=== PATIENT | male | born 1965 | race African-American/Black ===

== ENCOUNTER 2022-06-19 08:20 | Inpatient (IN) | payer OTHER, SELFPAY ==
[2022-06-19 09:06] LABS: #Eosinphils 0.7 thou/uL (0.0-0.7); #Lymphocytes 1.8 thou/uL (1.20-3.40); #Monocytes 1.2 thou/uL (0.11-0.59); #Neutrophils 5.1 thou/uL (1.40-6.50); %Basophils 0.1 % (0.0-1.0); %Eosinophils 8.4 % (0.0-10.0); %Lymphocytes 19.9 % (21.0-51.0); %Monocytes 13.4 % (0.0-10.0); %Neutrophils 58.2 % (42.0-75.0); Hemoglobin 6.3 g/dL (14.0-18.0); Mean Corpuscular HGB CONC 31.8 g/dL (32.0-36.0); Mean Corpuscular Hemoglobin 28.8 pg (27.0-31.0); Mean Corpuscular Volume 90.5 fL (78.0-98.0); Mean Platelet Volume 7.4 fL (7.4-10.4); Platelet Count 370 thou/uL (130-400); RBC Distribution Width 11.1 % (11.5-14.5); Red Blood Cell (RBC) Count 2.19 mill/uL (4.70-6.10); White Blood Cell (WBC) Count 8.8 thou/uL (4.8-10.8)
[2022-06-19] MEDS ORDERED: Iopamidol-370 76% 500 ML 1 ML ONE (09:18)
[2022-06-19 09:31] LABS: ALT (SGPT) Less than 7 U/L (8-55); AST (SGOT) 8 U/L (5-34); Albumin 3.7 g/dL (3.5-5.0); Alkaline Phosphatase 84 U/L (40-110); Anion Gap 20 mmol/L (10-20); BUN (Urea Nitrogen) 123 mg/dL (8.4-25.7); Bilirubin, Total 0.6 mg/dL (0.2-1.2); Calc. Creatinine Clearance 0 mL/min (70-130); Calcium 9.3 mg/dL (7.8-10.44); Carbon Dioxide 14 mmol/L (22-29); Chloride 109 mmol/L (98-107); Estimated GFR 3; Globulin 3.5 g/dL (2.4-3.5); Glucose 81 mg/dL (70-105); Lipase 80 U/L (8-78); Potassium 5.3 mmol/L (3.5-5.1); Protein, Total 7.2 g/dL (6.0-8.3); Sodium 138 mmol/L (136-145)
[2022-06-19 09:52] LABS: CKMB 2.1 ng/mL (0-6.6)
[2022-06-19 10:37] LABS: Iron 40 ug/dL (65-175); Iron Binding Capacity, Total 235 mcg/dL (261-462)
[2022-06-19] MEDS ORDERED: Sodium Bicarbonate 150 MEQ in Dextrose 5 %-0.45 % NaCl 1,000 ML FS SCH (11:00)
[2022-06-19] MEDS ORDERED: Ondansetron PF 4 MG/2 ML Vial IVP PRN (11:28)
[2022-06-19] MEDS ORDERED: Ondansetron ODT 4 MG TAB PO PRN (11:28)
[2022-06-19] MEDS ORDERED: Acetaminophen 650 MG Suppository PR PRN (11:28)
[2022-06-19] MEDS ORDERED: hydrALAZINE 20 MG/ML VIAL SLOW IVP PRN (11:30)
[2022-06-19 12:28] LABS: Hemoglobin 6.8 g/dL (14.0-18.0)
[2022-06-19 12:54] LABS: Anion Gap 19 mmol/L (10-20); BUN (Urea Nitrogen) 122 mg/dL (8.4-25.7); Calc. Creatinine Clearance 0 mL/min (70-130); Calcium 9.2 mg/dL (7.8-10.44); Carbon Dioxide 14 mmol/L (22-29); Chloride 111 mmol/L (98-107); Estimated GFR 3; Glucose 122 mg/dL (70-105); Potassium 5.3 mmol/L (3.5-5.1); Sodium 139 mmol/L (136-145)
[2022-06-19] MEDS ORDERED: Amlodipine 10 MG TAB PO SCH (13:30)
[2022-06-19 13:50] LABS: Hemoglobin 6.5 g/dL (14.0-18.0)
[2022-06-19 16:29] LABS: Bacteria/HPF None Seen HPF (None Seen); Bilirubin Negative (Negative); Blood, Urine 1+ (Negative); Clarity Clear (Clear); Glucose, Urine (Dipstick) 100 mg/dL (Negative); Ketone, Urine Negative (Negative); Leukocyte Negative Leu/uL (Negative); Nitrite Negative (Negative); Protein, Urine (Dipstick) 300 mg/dL (Neg-Trace); RBC/HPF 0-3 HPF (0-3); Specific Gravity, Urine 1.014 (1.002-1.036); Squamous Epithelial None Seen HPF (0-3); Urobilinogen Normal mg/dL (Less than 2); WBC/HPF 0-3 HPF (0-3)
[2022-06-19 16:31] LABS: Urine Culture Reflex No No
[2022-06-19 17:18] LABS: Creatinine, Urine 76.8 mg/dL (63-166)
[2022-06-19 17:45] LABS: Hemoglobin 7.3 g/dL (14.0-18.0)
[2022-06-19 18:45] LABS: Anion Gap 18 mmol/L (10-20); BUN (Urea Nitrogen) 122 mg/dL (8.4-25.7); Calc. Creatinine Clearance 7 mL/min (70-130); Calcium 8.8 mg/dL (7.8-10.44); Carbon Dioxide 15 mmol/L (22-29); Chloride 110 mmol/L (98-107); Estimated GFR 3; Glucose 105 mg/dL (70-105); Potassium 5.1 mmol/L (3.5-5.1); Sodium 138 mmol/L (136-145)
[2022-06-19] MEDS: Carvedilol 6.25 MG TAB PO SCH (21:19)
[2022-06-19] MEDS: Pantoprazole 40 MG VIAL IVP SCH (21:20)
[2022-06-19] MEDS: Sodium Bicarbonate 150 MEQ in Dextrose 5% in Water 1,000 ML IV SCH (23:20)
[2022-06-20 05:38] LABS: Anion Gap 18 mmol/L (10-20); BUN (Urea Nitrogen) 121 mg/dL (8.4-25.7); Calc. Creatinine Clearance 7 mL/min (70-130); Calcium 8.4 mg/dL (7.8-10.44); Carbon Dioxide 19 mmol/L (22-29); Chloride 107 mmol/L (98-107); Estimated GFR 3; Glucose 90 mg/dL (70-105); Potassium 4.6 mmol/L (3.5-5.1); Sodium 139 mmol/L (136-145)
[2022-06-20 05:44] LABS: #Eosinphils 0.6 thou/uL (0.0-0.7); #Lymphocytes 1.6 thou/uL (1.20-3.40); #Neutrophils 5.6 thou/uL (1.40-6.50); %Basophils 0.2 % (0.0-1.0); %Eosinophils 7.1 % (0.0-10.0); %Lymphocytes 18.2 % (21.0-51.0); %Monocytes 11.3 % (0.0-10.0); %Neutrophils 63.2 % (42.0-75.0); Hemoglobin 7.8 g/dL (14.0-18.0); Mean Corpuscular HGB CONC 33.5 g/dL (32.0-36.0); Mean Corpuscular Hemoglobin 30.2 pg (27.0-31.0); Mean Corpuscular Volume 90.2 fL (78.0-98.0); Mean Platelet Volume 7.5 fL (7.4-10.4); Platelet Count 301 thou/uL (130-400); RBC Distribution Width 11.9 % (11.5-14.5); Red Blood Cell (RBC) Count 2.59 mill/uL (4.70-6.10); White Blood Cell (WBC) Count 8.9 thou/uL (4.8-10.8)
[2022-06-20 08:35] LABS: Magnesium 1.4 mg/dL (1.6-2.6)
[2022-06-20 08:38] LABS: Total PSA 0.5 ng/mL (0.0-4.0)
[2022-06-20 08:49] LABS: CKMB 1.5 ng/mL (0-6.6)
[2022-06-20] MEDS ORDERED: Magnesium 2 GM/50 ML(in water) 2 GM in Premix Bag 1 BAG IVPB SCH (09:30)
[2022-06-20] MEDS: Sodium Bicarbonate 150 MEQ in Dextrose 5% in Water 1,000 ML IV SCH ×2 (09:46→20:41)
[2022-06-20] MEDS: Amlodipine 10 MG TAB PO SCH (09:48)
[2022-06-20] MEDS: Tamsulosin HCl 0.4 MG CAP PO SCH (09:48)
[2022-06-20] MEDS: Carvedilol 6.25 MG TAB PO SCH ×2 (09:49→20:40)
[2022-06-20] MEDS: Acetaminophen 325 MG TAB PO PRN ×3 (09:49→23:29)
[2022-06-20] MEDS: Pantoprazole 40 MG VIAL IVP SCH ×2 (09:50→20:41)
[2022-06-20 11:07] LABS: Phosphorus 5.6 mg/dL (2.3-4.7)
[2022-06-20 11:32] LABS: CKMB 1.3 ng/mL (0-6.6)
[2022-06-20] MEDS ORDERED: Calcitriol 0.25 MCG CAP PO SCH (12:00)
[2022-06-20 12:10] LABS: Hemoglobin 7.7 g/dL (14.0-18.0)
[2022-06-20] MEDS: Epoetin (ESRD) 10,000 UNITS/ML VIAL SC SCH (12:41)
[2022-06-20] MEDS ORDERED: Labetalol HCl 100 MG/20 ML VIAL SLOW IVP PRN (15:29)
[2022-06-20 17:28] LABS: Hemoglobin 8.1 g/dL (14.0-18.0)
[2022-06-20] MEDS: Ferrous Sulfate 325 MG TAB PO SCH (18:21)
[2022-06-20] MEDS: hydrALAZINE 25 MG TAB PO SCH (20:41)
[2022-06-21 05:21] LABS: #Eosinphils 0.6 thou/uL (0.0-0.7); #Lymphocytes 1.7 thou/uL (1.20-3.40); #Monocytes 1.5 thou/uL (0.11-0.59); #Neutrophils 11.1 thou/uL (1.40-6.50); %Basophils 0.3 % (0.0-1.0); %Eosinophils 3.8 % (0.0-10.0); %Lymphocytes 11.4 % (21.0-51.0); %Monocytes 9.9 % (0.0-10.0); %Neutrophils 74.7 % (42.0-75.0); Hemoglobin 7.8 g/dL (14.0-18.0); Mean Corpuscular Hemoglobin 29.6 pg (27.0-31.0); Mean Corpuscular Volume 89.6 fL (78.0-98.0); Mean Platelet Volume 7.6 fL (7.4-10.4); Platelet Count 318 thou/uL (130-400); RBC Distribution Width 11.7 % (11.5-14.5); Red Blood Cell (RBC) Count 2.64 mill/uL (4.70-6.10); White Blood Cell (WBC) Count 14.8 thou/uL (4.8-10.8)
[2022-06-21] MEDS: Acetaminophen 325 MG TAB PO PRN (05:31)
[2022-06-21 05:42] LABS: Anion Gap 18 mmol/L (10-20); BUN (Urea Nitrogen) 105 mg/dL (8.4-25.7); Calc. Creatinine Clearance 8 mL/min (70-130); Calcium 7.8 mg/dL (7.8-10.44); Carbon Dioxide 25 mmol/L (22-29); Chloride 99 mmol/L (98-107); Estimated GFR 4; Glucose 118 mg/dL (70-105); Magnesium 1.5 mg/dL (1.6-2.6); Potassium 4.4 mmol/L (3.5-5.1); Sodium 138 mmol/L (136-145)
[2022-06-21] MEDS ORDERED: HYDROcodone/Acetaminophen 7.5/325 mg Tablet PO SCH (06:00)
[2022-06-21] MEDS ORDERED: Magnesium 2 GM/50 ML(in water) 2 GM in Premix Bag 1 BAG IVPB SCH (06:00)
[2022-06-21] MEDS: Sodium Bicarbonate 150 MEQ in Dextrose 5% in Water 1,000 ML IV SCH (06:12)
[2022-06-21] MEDS: hydrALAZINE 25 MG TAB PO SCH ×3 (08:53→19:41)
[2022-06-21] MEDS: Calcitriol 0.25 MCG CAP PO SCH (08:53)
[2022-06-21] MEDS: Amlodipine 10 MG TAB PO SCH (08:53)
[2022-06-21] MEDS: Tamsulosin HCl 0.4 MG CAP PO SCH (08:53)
[2022-06-21] MEDS: Carvedilol 6.25 MG TAB PO SCH ×2 (08:54→19:41)
[2022-06-21] MEDS: Febuxostat 40 MG TAB PO SCH (08:54)
[2022-06-21] MEDS: Ferrous Sulfate 325 MG TAB PO SCH ×2 (08:54→17:20)
[2022-06-21] MEDS: Pantoprazole 40 MG VIAL IVP SCH ×2 (08:55→19:41)
[2022-06-21] MEDS ORDERED: Sodium Chloride 0.9% 1,000 ML IV SCH (10:15)
[2022-06-21] MEDS ORDERED: methylPREDNISolone 4 mg Tablet PO SCH (10:45)
[2022-06-21] MEDS: Calcium Carbonate 500 MG ChewTAB PO SCH ×2 (11:29→17:20)
[2022-06-21 13:17] LABS: 24 Hr Creatinine 1764.88 mg/24 hr (950-2490); Creatinine, Urine 67.88 mg/dL (63-166)
[2022-06-21] MEDS: HYDROcodone/Acetaminophen 5/325 mg Tablet PO PRN (13:20)
[2022-06-21 18:31] LABS: ANA Symphony (Qualitative) Negative (Negative); ANA Symphony (Quantitative) 0.5 Ratio (< 0.7 Negative); dsDNA IgG Antibody 1.1 IU/mL (<10 Negative)
[2022-06-21 22:49] LABS: Hemoglobin 8.6 g/dL (14.0-18.0); Platelet Count 283 thou/uL (130-400)
[2022-06-22 04:59] LABS: #Lymphocytes 1.4 thou/uL (1.20-3.40); #Monocytes 1.3 thou/uL (0.11-0.59); #Neutrophils 8.4 thou/uL (1.40-6.50); %Basophils 0.2 % (0.0-1.0); %Eosinophils 0.2 % (0.0-10.0); %Lymphocytes 12.8 % (21.0-51.0); %Monocytes 11.6 % (0.0-10.0); %Neutrophils 75.1 % (42.0-75.0); Hemoglobin 8.9 g/dL (14.0-18.0); Mean Corpuscular HGB CONC 33.6 g/dL (32.0-36.0); Mean Corpuscular Hemoglobin 30.3 pg (27.0-31.0); Mean Corpuscular Volume 90.2 fL (78.0-98.0); Mean Platelet Volume 7.6 fL (7.4-10.4); Platelet Count 305 thou/uL (130-400); RBC Distribution Width 11.7 % (11.5-14.5); Red Blood Cell (RBC) Count 2.93 mill/uL (4.70-6.10); White Blood Cell (WBC) Count 11.2 thou/uL (4.8-10.8)
[2022-06-22 05:01] LABS: Hemoglobin A1c 5.7 % (4.0-6.0)
[2022-06-22 05:08] LABS: Anion Gap 21 mmol/L (10-20); BUN (Urea Nitrogen) 108 mg/dL (8.4-25.7); Calc. Creatinine Clearance 8 mL/min (70-130); Calcium 8.4 mg/dL (7.8-10.44); Carbon Dioxide 21 mmol/L (22-29); Cardiac Risk 4.9 (Less than 4.5); Chloride 99 mmol/L (98-107); Cholesterol 191 mg/dl (< 200 Desired); Estimated GFR 4; Glucose 111 mg/dL (70-105); HDL Cholesterol 39 mg/dL (>60 Neg Risk); LDL Cholesterol, Calculated 135 mg/dL; Magnesium 1.7 mg/dL (1.6-2.6); Potassium 4.8 mmol/L (3.5-5.1); Sodium 136 mmol/L (136-145); Triglycerides 86 mg/dL (Less than 150)
[2022-06-22] MEDS ORDERED: methylPREDNISolone 4 mg Tablet PO SCH (08:00)
[2022-06-22] MEDS: Sodium Bicarbonate 75 MEQ in Sodium Chloride 0.45% 1,000 ML IV SCH ×2 (08:10→18:31)
[2022-06-22] MEDS: Calcium Carbonate 500 MG ChewTAB PO SCH ×3 (08:17→17:22)
[2022-06-22] MEDS: Carvedilol 6.25 MG TAB PO SCH ×2 (08:18→20:23)
[2022-06-22] MEDS: Ferrous Sulfate 325 MG TAB PO SCH ×2 (08:18→17:22)
[2022-06-22] MEDS: Tamsulosin HCl 0.4 MG CAP PO SCH (08:18)
[2022-06-22] MEDS: Calcitriol 0.25 MCG CAP PO SCH (08:18)
[2022-06-22] MEDS: Amlodipine 10 MG TAB PO SCH (08:18)
[2022-06-22] MEDS: hydrALAZINE 25 MG TAB PO SCH ×3 (08:18→20:23)
[2022-06-22] MEDS: Febuxostat 40 MG TAB PO SCH (08:19)
[2022-06-22] MEDS: Pantoprazole 40 MG VIAL IVP SCH ×2 (08:20→20:24)
[2022-06-22] MEDS ORDERED: Colchicine 0.6 MG TAB PO SCH (09:30)
[2022-06-22] MEDS ORDERED: Colchicine 0.3 MG TAB PO SCH (09:30)
[2022-06-22] MEDS: Iron, Sodium Ferric Gluconate 250 MG in Sodium Chloride 0.9% 250 ML 250 ML IVPB SCH (10:21)
[2022-06-22] MEDS: HYDROcodone/Acetaminophen 5/325 mg Tablet PO PRN (20:24)
[2022-06-23] MEDS: HYDROcodone/Acetaminophen 5/325 mg Tablet PO PRN ×2 (04:01→20:09)
[2022-06-23 04:48] LABS: #Eosinphils 0.1 thou/uL (0.0-0.7); #Lymphocytes 1.4 thou/uL (1.20-3.40); #Monocytes 1.3 thou/uL (0.11-0.59); %Basophils 0.2 % (0.0-1.0); %Eosinophils 1.1 % (0.0-10.0); %Lymphocytes 9.8 % (21.0-51.0); %Monocytes 9.7 % (0.0-10.0); %Neutrophils 79.2 % (42.0-75.0); Hemoglobin 9.1 g/dL (14.0-18.0); Mean Corpuscular HGB CONC 32.6 g/dL (32.0-36.0); Mean Corpuscular Hemoglobin 29.7 pg (27.0-31.0); Mean Corpuscular Volume 91.2 fL (78.0-98.0); Mean Platelet Volume 7.6 fL (7.4-10.4); Platelet Count 334 thou/uL (130-400); RBC Distribution Width 11.7 % (11.5-14.5); Red Blood Cell (RBC) Count 3.07 mill/uL (4.70-6.10); White Blood Cell (WBC) Count 13.9 thou/uL (4.8-10.8)
[2022-06-23 04:55] LABS: INR-International Normal Ratio 1.1; Prothrombin Time 13.9 sec (12.0-14.7)
[2022-06-23 04:56] LABS: PTT 41.4 sec (22.9-36.1)
[2022-06-23 05:06] LABS: Anion Gap 21 mmol/L (10-20); BUN (Urea Nitrogen) 101 mg/dL (8.4-25.7); BUN/Creatinine Ratio 7.35; Calc. Creatinine Clearance 9 mL/min (70-130); Calcium 8.8 mg/dL (7.8-10.44); Carbon Dioxide 21 mmol/L (22-29); Chloride 100 mmol/L (98-107); Estimated GFR 4; Glucose 113 mg/dL (70-105); Phosphorus 5.9 mg/dL (2.3-4.7); Potassium 4.8 mmol/L (3.5-5.1); Sodium 137 mmol/L (136-145)
[2022-06-23] MEDS ORDERED: methylPREDNISolone 4 mg Tablet PO SCH (08:00)
[2022-06-23] MEDS ORDERED: Colchicine 0.3 MG TAB PO SCH (08:45)
[2022-06-23] MEDS ORDERED: Colchicine 0.6 MG TAB PO SCH (08:45)
[2022-06-23] MEDS: Calcium Carbonate 500 MG ChewTAB PO SCH ×3 (09:43→16:34)
[2022-06-23] MEDS: Calcitriol 0.25 MCG CAP PO SCH (09:45)
[2022-06-23] MEDS: Carvedilol 6.25 MG TAB PO SCH ×2 (09:45→20:08)
[2022-06-23] MEDS: hydrALAZINE 25 MG TAB PO SCH ×3 (09:46→20:08)
[2022-06-23] MEDS: Febuxostat 40 MG TAB PO SCH (09:46)
[2022-06-23] MEDS: NIFEdipine XL 60 MG TAB PO SCH (09:47)
[2022-06-23] MEDS: Tamsulosin HCl 0.4 MG CAP PO SCH (09:47)
[2022-06-23] MEDS: Pantoprazole 40 MG VIAL IVP SCH ×2 (09:47→20:09)
[2022-06-23] MEDS: Iron, Sodium Ferric Gluconate 250 MG in Sodium Chloride 0.9% 250 ML 250 ML IVPB SCH (10:13)
[2022-06-23] MEDS ORDERED: Lidocaine 5% Patch TD SCH (10:15)
[2022-06-23] MEDS ORDERED: clonazePAM 1 MG TAB PO SCH (11:30)
[2022-06-23] MEDS: Ferrous Sulfate 325 MG TAB PO SCH ×2 (11:54→18:42)
[2022-06-23 15:13] LABS: Cytoplasmic (C-ANCA) <1:20 titer (Neg:<1:20); Myeloperoxidase AutoAbs <0.2 units (0.0-0.9); Perinuclear (P-ANCA) <1:20 titer (Neg:<1:20); Proteinase-3 AutoAbs Less than 0.2 units (0.0-0.9)
[2022-06-23] MEDS: clonazePAM 1 MG TAB PO SCH (20:09)
[2022-06-23] MEDS: Transdermal Patch Removal TOP SCH (20:26)
[2022-06-24 04:45] LABS: #Eosinphils 0.3 thou/uL (0.0-0.7); #Lymphocytes 1.4 thou/uL (1.20-3.40); #Monocytes 1.4 thou/uL (0.11-0.59); #Neutrophils 9.7 thou/uL (1.40-6.50); %Basophils 0.3 % (0.0-1.0); %Eosinophils 2.3 % (0.0-10.0); %Lymphocytes 11.2 % (21.0-51.0); %Neutrophils 75.2 % (42.0-75.0); Hemoglobin 8.9 g/dL (14.0-18.0); Mean Corpuscular HGB CONC 33.2 g/dL (32.0-36.0); Mean Corpuscular Hemoglobin 30.5 pg (27.0-31.0); Mean Corpuscular Volume 91.7 fL (78.0-98.0); Mean Platelet Volume 7.8 fL (7.4-10.4); Platelet Count 348 thou/uL (130-400); RBC Distribution Width 11.7 % (11.5-14.5); Red Blood Cell (RBC) Count 2.93 mill/uL (4.70-6.10); White Blood Cell (WBC) Count 12.8 thou/uL (4.8-10.8)
[2022-06-24 04:58] LABS: Albumin 2.9 g/dL (3.5-5.0); Anion Gap 20 mmol/L (10-20); BUN (Urea Nitrogen) 116 mg/dL (8.4-25.7); BUN/Creatinine Ratio 8.12; Calc. Creatinine Clearance 8 mL/min (70-130); Calcium 8.6 mg/dL (7.8-10.44); Carbon Dioxide 22 mmol/L (22-29); Chloride 98 mmol/L (98-107); Estimated GFR 4; Glucose 112 mg/dL (70-105); Phosphorus 5.9 mg/dL (2.3-4.7); Potassium 4.4 mmol/L (3.5-5.1); Sodium 136 mmol/L (136-145)
[2022-06-24] MEDS ORDERED: methylPREDNISolone 4 mg Tablet PO SCH (08:00)
[2022-06-24] MEDS: Calcium Carbonate 500 MG ChewTAB PO SCH ×3 (08:29→16:32)
[2022-06-24] MEDS: Carvedilol 6.25 MG TAB PO SCH (08:30)
[2022-06-24] MEDS: Calcitriol 0.25 MCG CAP PO SCH (08:30)
[2022-06-24] MEDS: clonazePAM 1 MG TAB PO SCH ×2 (08:30→21:57)
[2022-06-24] MEDS: Lidocaine 5% Patch TD SCH (08:31)
[2022-06-24] MEDS: hydrALAZINE 25 MG TAB PO SCH ×3 (08:31→21:57)
[2022-06-24] MEDS: NIFEdipine XL 60 MG TAB PO SCH (08:31)
[2022-06-24] MEDS: Tamsulosin HCl 0.4 MG CAP PO SCH (08:32)
[2022-06-24] MEDS: Pantoprazole 40 MG VIAL IVP SCH (08:32)
[2022-06-24] MEDS: Febuxostat 40 MG TAB PO SCH (08:32)
[2022-06-24] MEDS ORDERED: Lidocaine 5% Patch TD SCH (09:00)
[2022-06-24 09:32] LABS: CK (CPK) 216 U/L (30-200)
[2022-06-24] MEDS: Iron, Sodium Ferric Gluconate 250 MG in Sodium Chloride 0.9% 250 ML 250 ML IVPB SCH (11:05)
[2022-06-24] MEDS: Ferrous Sulfate 325 MG TAB PO SCH ×2 (11:05→18:15)
[2022-06-24 14:37] LABS: Albumin, PEP 24hr Ur 50.3 % (NOT ESTAB.); Alpha-1-Globulin, PEP 24h Ur 6.6 % (NOT ESTAB.); Alpha-2-Globulin, PEP 24h Ur 12.7 % (NOT ESTAB.); Beta Globulin, PEP 24h Ur 14.4 % (NOT ESTAB.); M-Spike,% PEP 24hr Ur Not Observed % (Not Observed); Protein, PEP 24hr calculated 9885 mg/24 hr (30-150); Protein, Urine 380.2 mg/dL (Not Estab.)
[2022-06-24] MEDS ORDERED: Lidocaine 1% (PF) 30 ML VIAL SC SCH (14:45)
[2022-06-24 15:13] LABS: A/G Ratio 0.8 (0.7-1.7); Albumin 2.6 g/dL (2.9-4.4); Alpha 1 0.4 g/dL (0.0-0.4); Alpha 2 0.8 g/dL (0.4-1.0); Globulin, Total 3.2 g/dL (2.2-3.9); M-Spike Not Observed g/dL (Not Observed); Protein Electrophoresis Intrp Note: (.)
[2022-06-24] MEDS ORDERED: methylPREDNISolone Acetate 40 mg/ml Vial IM SCH (15:30)
[2022-06-24] MEDS: Benzonatate 100 MG CAP PO PRN (18:15)
[2022-06-24 18:41] LABS: Synovial Fluid, Protein 3.8 g/dL (Not Available)
[2022-06-24 19:05] LABS: RBC Count-Automated (BF) 3079 /cu.mm; WBC/Nucleated-Auto (BF) 10646 /cu.mm
[2022-06-24 19:09] LABS: BF Color Yellow; Body Fluid Source Synovial Fluid; Clarity Cloudy/Turbid (Clear); Tube # EDTA
[2022-06-24 19:17] LABS: BF Segmented Neutrophils 81 %; Cell Count Non Hematic 17 %; Lymphocytes 2 %
[2022-06-24] MEDS: Carvedilol 25 MG TAB PO SCH (21:57)
[2022-06-24] MEDS: Transdermal Patch Removal TOP SCH (21:58)
[2022-06-25 05:16] LABS: ALT (SGPT) Less than 7 U/L (8-55); AST (SGOT) 11 U/L (5-34); Albumin 2.8 g/dL (3.5-5.0); Alkaline Phosphatase 72 U/L (40-110); Anion Gap 20 mmol/L (10-20); BUN (Urea Nitrogen) 114 mg/dL (8.4-25.7); BUN/Creatinine Ratio 7.66; Bilirubin, Total 0.7 mg/dL (0.2-1.2); Calc. Creatinine Clearance 8 mL/min (70-130); Calcium 8.6 mg/dL (7.8-10.44); Carbon Dioxide 22 mmol/L (22-29); Chloride 98 mmol/L (98-107); Estimated GFR 3; Globulin 3.5 g/dL (2.4-3.5); Glucose 150 mg/dL (70-105); Phosphorus 5.9 mg/dL (2.3-4.7); Protein, Total 6.3 g/dL (6.0-8.3); Sodium 135 mmol/L (136-145)
[2022-06-25] MEDS: hydrALAZINE 25 MG TAB PO SCH ×3 (08:59→21:44)
[2022-06-25] MEDS: Lidocaine 5% Patch TD SCH (08:59)
[2022-06-25] MEDS: NIFEdipine XL 60 MG TAB PO SCH ×2 (08:59→21:44)
[2022-06-25] MEDS: Carvedilol 25 MG TAB PO SCH ×2 (08:59→21:44)
[2022-06-25] MEDS ORDERED: Sodium Bicarbonate 2.5 MEQ/5 ML VIAL ONE (10:21)
[2022-06-25] MEDS ORDERED: Midazolam HCl 2 mg/2 ml Vial ONE (10:21)
[2022-06-25] MEDS ORDERED: Fentanyl 100 MCG/2 ML VIAL ONE (10:21)
[2022-06-25] MEDS: Calcium Carbonate 500 MG ChewTAB PO SCH ×3 (12:03→17:13)
[2022-06-25] MEDS: Febuxostat 40 MG TAB PO SCH (12:18)
[2022-06-25] MEDS: Calcitriol 0.25 MCG CAP PO SCH (12:18)
[2022-06-25] MEDS: Ferrous Sulfate 325 MG TAB PO SCH ×2 (12:18→17:13)
[2022-06-25] MEDS: Tamsulosin HCl 0.4 MG CAP PO SCH (12:19)
[2022-06-25] MEDS: Ampicillin/Sulbactam 3 GM in Sodium Chloride 0.9% 100 ML IVPB SCH ×3 (12:19→21:45)
[2022-06-25] MEDS ORDERED: Acetaminophen 500 MG TAB PO PRN (12:28)
[2022-06-25 14:09] VITALS: BMI 35.6
[2022-06-25] MEDS: Iron, Sodium Ferric Gluconate 250 MG in Sodium Chloride 0.9% 250 ML 250 ML IVPB SCH (16:00)
[2022-06-25] MEDS: Benzonatate 100 MG CAP PO PRN (21:44)
[2022-06-25] MEDS: Transdermal Patch Removal TOP SCH (21:45)
[2022-06-26] MEDS: Ampicillin/Sulbactam 3 GM in Sodium Chloride 0.9% 100 ML IVPB SCH ×2 (04:29→21:16)
[2022-06-26 05:12] LABS: Albumin 2.7 g/dL (3.5-5.0); Anion Gap 21 mmol/L (10-20); Calc. Creatinine Clearance 8 mL/min (70-130); Calcium 8.7 mg/dL (7.8-10.44); Carbon Dioxide 21 mmol/L (22-29); Chloride 101 mmol/L (98-107); Estimated GFR 3; Glucose 126 mg/dL (70-105); Phosphorus 7.1 mg/dL (2.3-4.7); Potassium 4.8 mmol/L (3.5-5.1); Sodium 138 mmol/L (136-145)
[2022-06-26 05:18] LABS: BUN (Urea Nitrogen) 118 mg/dL (8.4-25.7); BUN/Creatinine Ratio 7.52
[2022-06-26] MEDS: Febuxostat 40 MG TAB PO SCH (09:21)
[2022-06-26] MEDS: Ferrous Sulfate 325 MG TAB PO SCH ×2 (09:23→17:14)
[2022-06-26] MEDS: Calcitriol 0.25 MCG CAP PO SCH (09:23)
[2022-06-26] MEDS: Lidocaine 5% Patch TD SCH (09:23)
[2022-06-26] MEDS: Sodium Bicarbonate 75 MEQ in Sodium Chloride 0.45% 1,000 ML IV SCH ×2 (09:24→18:21)
[2022-06-26] MEDS: Carvedilol 25 MG TAB PO SCH ×2 (09:24→21:16)
[2022-06-26] MEDS: Calcium Carbonate 500 MG ChewTAB PO SCH ×3 (09:24→17:14)
[2022-06-26] MEDS: Tamsulosin HCl 0.4 MG CAP PO SCH (09:24)
[2022-06-26] MEDS: NIFEdipine XL 60 MG TAB PO SCH ×2 (09:24→21:16)
[2022-06-26 13:15] LABS: #Basophils 0.1 thou/uL (0.0-0.2); #Eosinphils 0.3 thou/uL (0.0-0.7); #Monocytes 1.4 thou/uL (0.11-0.59); #Neutrophils 8.9 thou/uL (1.40-6.50); %Basophils 0.6 % (0.0-1.0); %Eosinophils 2.5 % (0.0-10.0); %Lymphocytes 15.7 % (21.0-51.0); %Monocytes 10.7 % (0.0-10.0); %Neutrophils 70.5 % (42.0-75.0); Hemoglobin 8.9 g/dL (14.0-18.0); Mean Corpuscular HGB CONC 31.9 g/dL (32.0-36.0); Mean Corpuscular Volume 91.1 fL (78.0-98.0); Mean Platelet Volume 7.5 fL (7.4-10.4); Platelet Count 380 thou/uL (130-400); RBC Distribution Width 11.9 % (11.5-14.5); Red Blood Cell (RBC) Count 3.05 mill/uL (4.70-6.10); White Blood Cell (WBC) Count 12.7 thou/uL (4.8-10.8)
[2022-06-26] MEDS: Transdermal Patch Removal TOP SCH (23:26)
[2022-06-27 05:05] LABS: Albumin 2.7 g/dL (3.5-5.0); Anion Gap 21 mmol/L (10-20); Calc. Creatinine Clearance 8 mL/min (70-130); Calcium 8.2 mg/dL (7.8-10.44); Carbon Dioxide 21 mmol/L (22-29); Chloride 101 mmol/L (98-107); Estimated GFR 3; Glucose 95 mg/dL (70-105); Phosphorus 6.6 mg/dL (2.3-4.7); Potassium 4.5 mmol/L (3.5-5.1); Sodium 138 mmol/L (136-145)
[2022-06-27 05:17] LABS: BUN (Urea Nitrogen) 123 mg/dL (8.4-25.7); BUN/Creatinine Ratio 7.94
[2022-06-27 05:20] LABS: Band 1 % (5-11); Eosinophils 4 % (0-10); Hemoglobin 8.2 g/dL (14.0-18.0); Lymphocytes 14 % (21-51); MDiff Complete? YES; Mean Corpuscular HGB CONC 31.9 g/dL (32.0-36.0); Mean Corpuscular Hemoglobin 29.4 pg (27.0-31.0); Mean Corpuscular Volume 92.3 fL (78.0-98.0); Mean Platelet Volume 7.5 fL (7.4-10.4); Monocytes 12 % (0-10); Neutrophil 69 % (42-75); Platelet Count 370 thou/uL (130-400); Red Blood Cell (RBC) Count 2.79 mill/uL (4.70-6.10); White Blood Cell (WBC) Count 11.8 thou/uL (4.8-10.8)
[2022-06-27] MEDS: NIFEdipine XL 60 MG TAB PO SCH ×2 (09:29→19:46)
[2022-06-27] MEDS: Calcitriol 0.25 MCG CAP PO SCH (09:29)
[2022-06-27] MEDS: Ferrous Sulfate 325 MG TAB PO SCH ×2 (09:29→17:49)
[2022-06-27] MEDS: Tamsulosin HCl 0.4 MG CAP PO SCH (09:29)
[2022-06-27] MEDS: Calcium Carbonate 500 MG ChewTAB PO SCH ×4 (09:29→19:47)
[2022-06-27] MEDS: Carvedilol 25 MG TAB PO SCH ×2 (09:30→19:46)
[2022-06-27] MEDS: Febuxostat 40 MG TAB PO SCH (09:30)
[2022-06-27] MEDS: Ampicillin/Sulbactam 3 GM in Sodium Chloride 0.9% 100 ML IVPB SCH ×2 (09:31→19:47)
[2022-06-27] MEDS: Sodium Bicarbonate 150 MEQ in Dextrose 5% in Water 1,000 ML IV SCH ×2 (10:17→19:06)
[2022-06-27] MEDS: Lidocaine 5% Patch TD SCH (10:21)
[2022-06-27] MEDS: Epoetin (ESRD) 10,000 UNITS/ML VIAL SC SCH (13:53)
[2022-06-27] MEDS: Benzonatate 100 MG CAP PO PRN (19:46)
[2022-06-27] MEDS: Transdermal Patch Removal TOP SCH (19:48)
[2022-06-28] MEDS ORDERED: Zolpidem Tartrate 5 MG TAB PO SCH (01:15)
[2022-06-28] MEDS: Sodium Bicarbonate 150 MEQ in Dextrose 5% in Water 1,000 ML IV SCH ×2 (03:00→16:26)
[2022-06-28] MEDS: Benzonatate 100 MG CAP PO PRN ×2 (04:39→18:37)
[2022-06-28] MEDS: Calcium Carbonate 500 MG ChewTAB PO SCH ×3 (05:47→21:12)
[2022-06-28 06:36] LABS: #Basophils 0.1 thou/uL (0.0-0.2); #Eosinphils 0.6 thou/uL (0.0-0.7); #Lymphocytes 2.2 thou/uL (1.20-3.40); #Monocytes 1.5 thou/uL (0.11-0.59); #Neutrophils 7.6 thou/uL (1.40-6.50); %Basophils 0.5 % (0.0-1.0); %Eosinophils 4.9 % (0.0-10.0); %Lymphocytes 18.6 % (21.0-51.0); %Monocytes 12.8 % (0.0-10.0); %Neutrophils 63.3 % (42.0-75.0); Mean Corpuscular HGB CONC 32.7 g/dL (32.0-36.0); Mean Corpuscular Hemoglobin 29.9 pg (27.0-31.0); Mean Corpuscular Volume 91.4 fL (78.0-98.0); Mean Platelet Volume 6.8 fL (7.4-10.4); Platelet Count 325 thou/uL (130-400); RBC Distribution Width 11.9 % (11.5-14.5); Red Blood Cell (RBC) Count 2.67 mill/uL (4.70-6.10); White Blood Cell (WBC) Count 11.9 thou/uL (4.8-10.8)
[2022-06-28 06:48] LABS: Albumin 2.7 g/dL (3.5-5.0); Anion Gap 20 mmol/L (10-20); BUN (Urea Nitrogen) 122 mg/dL (8.4-25.7); BUN/Creatinine Ratio 8.02; Calc. Creatinine Clearance 8 mL/min (70-130); Calcium 7.7 mg/dL (7.8-10.44); Carbon Dioxide 27 mmol/L (22-29); Chloride 96 mmol/L (98-107); Estimated GFR 3; Glucose 124 mg/dL (70-105); Phosphorus 6.7 mg/dL (2.3-4.7); Potassium 4.1 mmol/L (3.5-5.1); Sodium 139 mmol/L (136-145)
[2022-06-28] MEDS: Albumin 25% 25 GM/100 ML BOT IVPB SCH ×2 (08:07→14:40)
[2022-06-28] MEDS: Ampicillin/Sulbactam 3 GM in Sodium Chloride 0.9% 100 ML IVPB SCH ×2 (08:08→21:08)
[2022-06-28] MEDS: NIFEdipine XL 60 MG TAB PO SCH ×2 (08:08→21:12)
[2022-06-28] MEDS: Calcitriol 0.25 MCG CAP PO SCH (08:08)
[2022-06-28] MEDS: Ferrous Sulfate 325 MG TAB PO SCH ×2 (08:09→16:23)
[2022-06-28] MEDS: Febuxostat 40 MG TAB PO SCH (08:09)
[2022-06-28] MEDS: Carvedilol 25 MG TAB PO SCH ×2 (08:09→21:12)
[2022-06-28] MEDS: Tamsulosin HCl 0.4 MG CAP PO SCH (08:09)
[2022-06-28] MEDS: Lidocaine 5% Patch TD SCH (08:30)
[2022-06-28] MEDS: Transdermal Patch Removal TOP SCH (21:14)
[2022-06-29] MEDS: Calcium Carbonate 500 MG ChewTAB PO SCH ×3 (05:12→20:33)
[2022-06-29 07:26] LABS: #Basophils 0.1 thou/uL (0.0-0.2); #Eosinphils 0.5 thou/uL (0.0-0.7); #Monocytes 1.5 thou/uL (0.11-0.59); #Neutrophils 8.2 thou/uL (1.40-6.50); %Basophils 0.7 % (0.0-1.0); %Eosinophils 3.9 % (0.0-10.0); %Lymphocytes 16.6 % (21.0-51.0); %Monocytes 11.9 % (0.0-10.0); %Neutrophils 66.9 % (42.0-75.0); Hemoglobin 8.7 g/dL (14.0-18.0); Mean Corpuscular HGB CONC 32.4 g/dL (32.0-36.0); Mean Corpuscular Hemoglobin 29.9 pg (27.0-31.0); Mean Corpuscular Volume 92.3 fL (78.0-98.0); Mean Platelet Volume 7.2 fL (7.4-10.4); Platelet Count 365 thou/uL (130-400); Red Blood Cell (RBC) Count 2.91 mill/uL (4.70-6.10); White Blood Cell (WBC) Count 12.3 thou/uL (4.8-10.8)
[2022-06-29 07:48] LABS: MDiff Complete? YES; Platelet Morphology Comment Appears Adequate; Polychromasia SLIGHT = 2-3 cells (100X) (0-2/hpf)
[2022-06-29] MEDS: Benzonatate 100 MG CAP PO PRN ×3 (08:07→20:34)
[2022-06-29] MEDS: Febuxostat 40 MG TAB PO SCH (08:07)
[2022-06-29] MEDS: Ampicillin/Sulbactam 3 GM in Sodium Chloride 0.9% 100 ML IVPB SCH ×2 (08:07→20:34)
[2022-06-29] MEDS: Calcitriol 0.25 MCG CAP PO SCH (08:07)
[2022-06-29] MEDS: NIFEdipine XL 60 MG TAB PO SCH ×2 (08:07→20:33)
[2022-06-29] MEDS: Ferrous Sulfate 325 MG TAB PO SCH ×2 (08:07→16:56)
[2022-06-29] MEDS: Carvedilol 25 MG TAB PO SCH ×2 (08:07→20:34)
[2022-06-29] MEDS: Tamsulosin HCl 0.4 MG CAP PO SCH (08:07)
[2022-06-29] MEDS: Lidocaine 5% Patch TD SCH (08:15)
[2022-06-29 12:39] LABS: Albumin 3.4 g/dL (3.5-5.0); Anion Gap 23 mmol/L (10-20); BUN (Urea Nitrogen) 116 mg/dL (8.4-25.7); BUN/Creatinine Ratio 7.36; Calc. Creatinine Clearance 8 mL/min (70-130); Calcium 8.9 mg/dL (7.8-10.44); Carbon Dioxide 25 mmol/L (22-29); Chloride 99 mmol/L (98-107); Estimated GFR 3; Glucose 100 mg/dL (70-105); Phosphorus 7.1 mg/dL (2.3-4.7); Potassium 4.4 mmol/L (3.5-5.1); Sodium 143 mmol/L (136-145)
[2022-06-29] MEDS: Sevelamer Carbonate 800 MG TAB PO SCH (16:56)
[2022-06-29] MEDS ORDERED: GoLYTELY 4,000 ml Bottle PO SCH (17:00)
[2022-06-29] MEDS: Transdermal Patch Removal TOP SCH (20:42)
[2022-06-30] MEDS: Calcium Carbonate 500 MG ChewTAB PO SCH ×3 (05:07→20:21)
[2022-06-30] MEDS: Carvedilol 25 MG TAB PO SCH (05:07)
[2022-06-30 07:18] LABS: Reticulocyte Count 2.6 % (0.5-1.5)
[2022-06-30 07:20] LABS: #Basophils 0.1 thou/uL (0.0-0.2); #Eosinphils 0.4 thou/uL (0.0-0.7); #Monocytes 1.1 thou/uL (0.11-0.59); #Neutrophils 8.1 thou/uL (1.40-6.50); %Basophils 0.7 % (0.0-1.0); %Eosinophils 3.8 % (0.0-10.0); %Lymphocytes 16.8 % (21.0-51.0); %Monocytes 9.8 % (0.0-10.0); %Neutrophils 68.9 % (42.0-75.0); Hemoglobin 9.3 g/dL (14.0-18.0); Mean Corpuscular HGB CONC 32.1 g/dL (32.0-36.0); Mean Corpuscular Hemoglobin 29.9 pg (27.0-31.0); Mean Corpuscular Volume 93.1 fL (78.0-98.0); Mean Platelet Volume 7.4 fL (7.4-10.4); Platelet Count 387 thou/uL (130-400); RBC Distribution Width 12.2 % (11.5-14.5); White Blood Cell (WBC) Count 11.7 thou/uL (4.8-10.8)
[2022-06-30 07:28] LABS: INR-International Normal Ratio 1.1; PTT 35.1 sec (22.9-36.1); Prothrombin Time 14.1 sec (12.0-14.7)
[2022-06-30 07:40] LABS: Albumin 3.5 g/dL (3.5-5.0); Anion Gap 27 mmol/L (10-20); BUN (Urea Nitrogen) 111 mg/dL (8.4-25.7); BUN/Creatinine Ratio 6.91; Bilirubin, Total 0.6 mg/dL (0.2-1.2); Calc. Creatinine Clearance 8 mL/min (70-130); Calcium 9.3 mg/dL (7.8-10.44); Carbon Dioxide 20 mmol/L (22-29); Chloride 101 mmol/L (98-107); Estimated GFR 3; Glucose 78 mg/dL (70-105); Phosphorus 7.5 mg/dL (2.3-4.7); Potassium 4.7 mmol/L (3.5-5.1); Sodium 143 mmol/L (136-145)
[2022-06-30 07:59] LABS: HBSAg Index 0.24 S/CO (0-0.99); Hep B Surf Ag Non-Reactive S/CO (NonReactive); Hep C IgG Ab Non-Reactive (NonReactive); Hep C Index 0.11 S/CO (0-0.79); Vitamin D, 25 Hydroxy 16.6 ng/ml (> 30.0)
[2022-06-30] MEDS: Sevelamer Carbonate 800 MG TAB PO SCH ×3 (08:00→17:52)
[2022-06-30] MEDS ORDERED: Tuberculin PPD 0.1 ML VIAL I-DERMAL SCH (08:30)
[2022-06-30] MEDS: Ampicillin/Sulbactam 3 GM in Sodium Chloride 0.9% 100 ML IVPB SCH ×2 (08:30→20:20)
[2022-06-30] MEDS: Labetalol HCl 100 MG TAB PO SCH ×2 (08:53→20:21)
[2022-06-30 09:04] LABS: HBSAB Concentration 137.37 mIU/mL; Hep B Surf AB Reactive (NonReactive)
[2022-06-30 10:03] LABS: Hep B Core Total Ab Reactive (NonReactive); Hep B Core Total Index 7.54 S/CO (0-0.79)
[2022-06-30] MEDS ORDERED: Lidocaine 1% MPF 2 ML VIAL ONE (10:38)
[2022-06-30] MEDS ORDERED: PROPOFOL 200 MG/20 ML VIAL ONE (10:38)
[2022-06-30] MEDS: NIFEdipine XL 60 MG TAB PO SCH ×2 (12:44→20:20)
[2022-06-30] MEDS: Ferrous Sulfate 325 MG TAB PO SCH ×2 (12:44→17:52)
[2022-06-30] MEDS: Febuxostat 40 MG TAB PO SCH (12:44)
[2022-06-30] MEDS: Tamsulosin HCl 0.4 MG CAP PO SCH (12:45)
[2022-06-30] MEDS: Calcitriol 0.25 MCG CAP PO SCH (12:45)
[2022-06-30] MEDS ORDERED: hydrALAZINE 20 MG/ML VIAL SLOW IVP PRN (12:54)
[2022-06-30] MEDS: Lidocaine 5% Patch TD SCH (15:33)
[2022-06-30] MEDS: Transdermal Patch Removal TOP SCH (20:21)
[2022-07-01] MEDS ORDERED: CEFAZOLIN 2 GM in Sodium Chloride 0.9% 100 ML IVPB SCH (00:01)
[2022-07-01] MEDS: Labetalol HCl 100 MG TAB PO SCH ×2 (05:07→21:44)
[2022-07-01] MEDS: Calcium Carbonate 500 MG ChewTAB PO SCH ×3 (05:07→21:44)
[2022-07-01] MEDS ORDERED: fentaNYL Citrate/PF 100 MCG/2 ML SYRINGE ONE (06:42)
[2022-07-01] MEDS ORDERED: Lidocaine 2% PF 5 ML VIAL ONE (06:58)
[2022-07-01] MEDS ORDERED: Bupivacaine/Epinephrine 0.25% 30 ML VIAL ONE (06:58)
[2022-07-01] MEDS ORDERED: Heparin 5,000 UNITS/ML VIAL ONE (06:58)
[2022-07-01] MEDS ORDERED: Protamine Sulfate 50 MG/5 ML VIAL ONE (06:58)
[2022-07-01] MEDS ORDERED: Heparin 10,000 UNITS/ 10 ML VIAL ONE (06:58)
[2022-07-01 07:06] LABS: #Basophils 0.1 thou/uL (0.0-0.2); #Eosinphils 0.4 thou/uL (0.0-0.7); #Lymphocytes 1.6 thou/uL (1.20-3.40); #Neutrophils 7.6 thou/uL (1.40-6.50); %Basophils 0.7 % (0.0-1.0); %Eosinophils 3.5 % (0.0-10.0); %Lymphocytes 14.6 % (21.0-51.0); %Monocytes 9.5 % (0.0-10.0); %Neutrophils 71.7 % (42.0-75.0); Hemoglobin 8.1 g/dL (14.0-18.0); Mean Corpuscular HGB CONC 31.7 g/dL (32.0-36.0); Mean Corpuscular Hemoglobin 29.6 pg (27.0-31.0); Mean Corpuscular Volume 93.2 fL (78.0-98.0); Mean Platelet Volume 7.5 fL (7.4-10.4); Platelet Count 363 thou/uL (130-400); RBC Distribution Width 12.3 % (11.5-14.5); Red Blood Cell (RBC) Count 2.72 mill/uL (4.70-6.10); White Blood Cell (WBC) Count 10.6 thou/uL (4.8-10.8)
[2022-07-01 07:36] LABS: Anion Gap 25 mmol/L (10-20); BUN (Urea Nitrogen) 105 mg/dL (8.4-25.7); BUN/Creatinine Ratio 6.38; Calc. Creatinine Clearance 7 mL/min (70-130); Calcium 8.6 mg/dL (7.8-10.44); Carbon Dioxide 19 mmol/L (22-29); Chloride 104 mmol/L (98-107); Estimated GFR 3; Glucose 88 mg/dL (70-105); Phosphorus 7.6 mg/dL (2.3-4.7); Potassium 4.5 mmol/L (3.5-5.1); Sodium 143 mmol/L (136-145)
[2022-07-01] MEDS ORDERED: Sodium Chloride 0.9% 100 ML ONE (07:53)
[2022-07-01] MEDS ORDERED: CEFAZOLIN 2 GM VIAL ONE (07:53)
[2022-07-01] MEDS ORDERED: SUGAMMADEX SODIUM 200 MG/2 ML VIAL ONE (07:57)
[2022-07-01] MEDS ORDERED: Lidocaine 2% Jelly 5 ML TUBE ONE (07:57)
[2022-07-01] MEDS ORDERED: Ondansetron PF 4 MG/2 ML Vial ONE (08:00)
[2022-07-01] MEDS ORDERED: Rocuronium Bromide 10 MG/ML (10ML VIAL) ONE (08:00)
[2022-07-01] MEDS ORDERED: PROPOFOL 200 MG/20 ML VIAL ONE (08:00)
[2022-07-01] MEDS ORDERED: Lidocaine 1% MPF 2 ML VIAL ONE (08:00)
[2022-07-01] MEDS ORDERED: Labetalol HCl 100 MG TAB PO SCH (09:00)
[2022-07-01] MEDS ORDERED: Ergocalciferol 1.25 MG(50,000 UNITS) CAP PO SCH (09:00)
[2022-07-01] MEDS: Ferrous Sulfate 325 MG TAB PO SCH ×2 (09:28→16:09)
[2022-07-01] MEDS: Ampicillin/Sulbactam 3 GM in Sodium Chloride 0.9% 100 ML IVPB SCH (09:29)
[2022-07-01] MEDS: Sevelamer Carbonate 800 MG TAB PO SCH ×3 (09:29→16:09)
[2022-07-01] MEDS: NIFEdipine XL 60 MG TAB PO SCH ×2 (09:31→21:44)
[2022-07-01] MEDS ORDERED: Promethazine HCl 25 MG/ML VIAL IM PRN (09:52)
[2022-07-01] MEDS ORDERED: Ondansetron HCl/PF 4 MG/2 ML Vial IVP PRN (09:52)
[2022-07-01] MEDS ORDERED: Promethazine HCl 25 MG/ML VIAL IVPB PRN (09:52)
[2022-07-01] MEDS: Lidocaine 5% Patch TD SCH (10:52)
[2022-07-01] MEDS: Febuxostat 40 MG TAB PO SCH (10:52)
[2022-07-01] MEDS: Calcitriol 0.25 MCG CAP PO SCH (10:53)
[2022-07-01] MEDS: Tamsulosin HCl 0.4 MG CAP PO SCH (10:53)
[2022-07-01] MEDS ORDERED: Meperidine HCl/PF 25 MG/ML VIAL SLOW IVP PRN (11:33)
[2022-07-01] MEDS: Cepastat Lozenges 1 LOZ PO PRN (13:51)
[2022-07-01] MEDS ORDERED: Ampicillin/Sulbactam 1.5 GM in Sodium Chloride 0.9% 100 ML IVPB SCH (21:00)
[2022-07-01] MEDS: Transdermal Patch Removal TOP SCH (21:00)
[2022-07-02] MEDS: Cepastat Lozenges 1 LOZ PO PRN (04:03)
[2022-07-02] MEDS: HYDROcodone/Acetaminophen 5/325 mg Tablet PO PRN ×3 (05:30→23:26)
[2022-07-02] MEDS: Calcium Carbonate 500 MG ChewTAB PO SCH ×3 (05:30→20:38)
[2022-07-02 06:48] LABS: #Basophils 0.1 thou/uL (0.0-0.2); #Eosinphils 0.4 thou/uL (0.0-0.7); #Lymphocytes 1.7 thou/uL (1.20-3.40); #Neutrophils 8.2 thou/uL (1.40-6.50); %Basophils 0.7 % (0.0-1.0); %Eosinophils 3.9 % (0.0-10.0); %Lymphocytes 14.7 % (21.0-51.0); %Monocytes 8.8 % (0.0-10.0); %Neutrophils 71.9 % (42.0-75.0); Hemoglobin 7.3 g/dL (14.0-18.0); Mean Corpuscular HGB CONC 32.4 g/dL (32.0-36.0); Mean Corpuscular Volume 92.5 fL (78.0-98.0); Mean Platelet Volume 7.2 fL (7.4-10.4); Platelet Count 312 thou/uL (130-400); RBC Distribution Width 12.5 % (11.5-14.5); Red Blood Cell (RBC) Count 2.44 mill/uL (4.70-6.10); White Blood Cell (WBC) Count 11.4 thou/uL (4.8-10.8)
[2022-07-02 07:19] LABS: Albumin 2.9 g/dL (3.5-5.0); Anion Gap 24 mmol/L (10-20); BUN (Urea Nitrogen) 98 mg/dL (8.4-25.7); BUN/Creatinine Ratio 5.86; Calc. Creatinine Clearance 7 mL/min (70-130); Calcium 8.3 mg/dL (7.8-10.44); Carbon Dioxide 19 mmol/L (22-29); Chloride 105 mmol/L (98-107); Estimated GFR 3; Glucose 85 mg/dL (70-105); Phosphorus 7.9 mg/dL (2.3-4.7); Potassium 4.8 mmol/L (3.5-5.1); Sodium 143 mmol/L (136-145)
[2022-07-02] MEDS: Sevelamer Carbonate 800 MG TAB PO SCH ×3 (08:18→16:59)
[2022-07-02] MEDS: Ferrous Sulfate 325 MG TAB PO SCH ×2 (08:18→16:59)
[2022-07-02] MEDS: Sodium Bicarbonate Tab 325 MG TAB PO SCH ×2 (08:19→20:39)
[2022-07-02] MEDS: Labetalol HCl 100 MG TAB PO SCH ×2 (08:19→20:38)
[2022-07-02] MEDS: Calcitriol 0.25 MCG CAP PO SCH (08:19)
[2022-07-02] MEDS: Febuxostat 40 MG TAB PO SCH (08:19)
[2022-07-02] MEDS: Lidocaine 5% Patch TD SCH (08:20)
[2022-07-02] MEDS: NIFEdipine XL 60 MG TAB PO SCH ×2 (08:20→20:39)
[2022-07-02] MEDS: Tamsulosin HCl 0.4 MG CAP PO SCH (08:20)
[2022-07-02] MEDS: Senokot S 8.6-50 MG TAB PO PRN (16:59)
[2022-07-02] MEDS: Transdermal Patch Removal TOP SCH (20:39)
[2022-07-03] MEDS: Calcium Carbonate 500 MG ChewTAB PO SCH ×3 (05:27→17:51)
[2022-07-03 07:14] LABS: Albumin 2.9 g/dL (3.5-5.0); Anion Gap 22 mmol/L (10-20); BUN (Urea Nitrogen) 100 mg/dL (8.4-25.7); BUN/Creatinine Ratio 5.72; Calc. Creatinine Clearance 7 mL/min (70-130); Calcium 8.6 mg/dL (7.8-10.44); Carbon Dioxide 19 mmol/L (22-29); Chloride 106 mmol/L (98-107); Estimated GFR 3; Glucose 88 mg/dL (70-105); Phosphorus 8.1 mg/dL (2.3-4.7); Potassium 4.7 mmol/L (3.5-5.1); Sodium 142 mmol/L (136-145)
[2022-07-03] MEDS: NIFEdipine XL 60 MG TAB PO SCH ×2 (08:47→18:50)
[2022-07-03] MEDS: Febuxostat 40 MG TAB PO SCH (08:47)
[2022-07-03] MEDS: Senokot S 8.6-50 MG TAB PO PRN (08:47)
[2022-07-03] MEDS: Labetalol HCl 100 MG TAB PO SCH ×2 (08:47→18:50)
[2022-07-03] MEDS: Sevelamer Carbonate 800 MG TAB PO SCH ×3 (08:48→17:52)
[2022-07-03] MEDS: Ferrous Sulfate 325 MG TAB PO SCH ×2 (08:48→17:51)
[2022-07-03] MEDS: Sodium Bicarbonate Tab 325 MG TAB PO SCH ×2 (08:48→17:51)
[2022-07-03] MEDS: Calcitriol 0.25 MCG CAP PO SCH (08:48)
[2022-07-03] MEDS: Tamsulosin HCl 0.4 MG CAP PO SCH (08:48)
[2022-07-03] MEDS: Lidocaine 5% Patch TD SCH (09:00)
[2022-07-03 12:51] VITALS: BP 161/88; TEMP 97.8
[2022-07-03] MEDS ORDERED: Tamsulosin HCl 0.4 MG CAP PO SCH (21:00)
[2022-07-04] MEDS ORDERED: Tamsulosin HCl 0.4 MG CAP PO SCH (21:00)
== END 2022-07-03 19:10 | disposition home or self-care (01) | DRG 673 ==
LOC: ERS 08:20 → 2SW 12:21 → T4-B 06-28 18:27
PROVIDERS: ADMIT Student in an Organized Health Care Education/Training Program; ATTEND Student in an Organized Health Care Education/Training Program
PROC: 30233N1 Transfusion of Nonautologous Red Blood Cells into Peripheral Vein, Percutaneous Approach (ICD-10-PCS; principal; 2022-06-19)
PROC: 8E0ZXY6 Isolation (ICD-10-PCS; 2022-06-19)
PROC: 0S9C3ZZ Drainage of Right Knee Joint, Percutaneous Approach (ICD-10-PCS; 2022-06-24)
PROC: 3E0U33Z Introduction of Anti-inflammatory into Joints, Percutaneous Approach (ICD-10-PCS; 2022-06-24)
PROC: 3E0U3BZ Introduction of Anesthetic Agent into Joints, Percutaneous Approach (ICD-10-PCS; 2022-06-24)
PROC: 0TB13ZX Excision of Left Kidney, Percutaneous Approach, Diagnostic (ICD-10-PCS; 2022-06-26)
PROC: 0DB78ZX Excision of Stomach, Pylorus, Via Natural or Artificial Opening Endoscopic, Diagnostic (ICD-10-PCS; 2022-06-30)
PROC: 0DBM8ZZ Excision of Descending Colon, Via Natural or Artificial Opening Endoscopic (ICD-10-PCS; 2022-06-30)
PROC: 031C0ZF Bypass Left Radial Artery to Lower Arm Vein, Open Approach (ICD-10-PCS; 2022-07-01)
PROC: 0WHG03Z Insertion of Infusion Device into Peritoneal Cavity, Open Approach (ICD-10-PCS; 2022-07-01)
DX: N05.1 Unspecified nephritic syndrome with focal and segmental glomerular lesions (principal); J18.9 Pneumonia, unspecified organism; U07.1 COVID-19; K92.1 Melena; D62 Acute posthemorrhagic anemia; E87.2 Acidosis; I24.8 Other forms of acute ischemic heart disease; N18.6 End stage renal disease; N17.9 Acute kidney failure, unspecified; N25.81 Secondary hyperparathyroidism of renal origin; Z20.822 Contact with and (suspected) exposure to COVID-19; N40.0 Benign prostatic hyperplasia without lower urinary tract symptoms; D50.9 Iron deficiency anemia, unspecified; D63.1 Anemia in chronic kidney disease; M10.061 Idiopathic gout, right knee; E78.5 Hyperlipidemia, unspecified; E55.9 Vitamin D deficiency, unspecified; K64.8 Other hemorrhoids; K57.30 Diverticulosis of large intestine without perforation or abscess without bleeding; E83.39 Other disorders of phosphorus metabolism; G47.33 Obstructive sleep apnea (adult) (pediatric); G25.1 Drug-induced tremor; T38.0X5A Adverse effect of glucocorticoids and synthetic analogues, initial encounter; Z79.899 Other long term (current) drug therapy; Z90.49 Acquired absence of other specified parts of digestive tract
CPT/HCPCS: 36415; 36416; 36430; 50200; 70450; 71045; 74177; 76770; 77002; 80048; 80053; 80061; 80069; 81001; 82247; 82248; 82274; 82306; 82550; 82553; 82570; 82728; 82945; 83010; 83036; 83516; 83540; 83550; 83615; 83690; 83735; 83880; 83970; 84100; 84153; 84154; 84155; 84156; 84157; 84165; 84166; 84300; 84443; 84484; 84540; 84550; 85025; 85046; 85060; 85610; 85730; 86037; 86038; 86225; 86580; 86704; 86850; 86900; 86901; 87070; 87205; 87340; 88305; 88329; 89051; 89060; 93005; 93306; 93970; 96360; 96361; C1776; C9113; J0295; J0690; J1644; J2001; J2175; J2250; J2405; J2704; J2720; J2916; J2920; J3010; J3475; J3490; J7042; J7050; J7070; J7509; P9016; P9047; Q4081; Q9967; U0003; U0005